=== PATIENT | female | born 1980 | race Caucasian/White ===

== ENCOUNTER 2019-11-05 02:37 | Emergency (ER) | payer BC ==
--- NOTE | 2019-11-05 03:21 | PDOC ---
Attending Attestation - Resident Resident Name: Shashank Iversonson - ED Attending Attestation I have performed the following: I have examined & evaluated the patient, The case was reviewed & discussed with the resident, I agree w/resident's findings & plan - HPI HPI: 11/05/19 06:27 Pt comes with left CP and left shoulder numbness that began as numbness in the left forearm, and spread to involve the entire arm Pt has no decreased range of motion or weakness. SHe has some Left neck and left anterior shoulder chest pain No other complaints. - Physicial Exam PE: 11/05/19 21:06 Agree with resident exam - Medical Decision Making 11/05/19 06:27 CBC is normal CHEM is pending 11/05/19 07:[address] cspine to r/o disc herniation 11/05/19 21:08 Sign out to day ER docs. Heart Score/ECG Review - ECG Intrepretation Rhythm: Regular Rhythm - P and OK Prominent R with upright T in V1 (true posterior MS): No - QRS Poor R Wave Progression: No Q Wave Present: No - ST and T Early Repolarization: No Non Specific ST-T Wave changes: Yes Flattened T Waves: No Prolonged Q-T Interval: No - ECG Impressions Normal ECG: Yes Non-specific ST Elevation: No Ischemic Changes: No Bradycardia: Yes Torsades sanjay Pointes: No Comment:: 11/05/19 03:21 RATE 59bpm
[2019-11-05 03:46] VITALS: BMI 27.4
--- NOTE | 2019-11-05 04:49 | PDOC ---
Attending Attestation - Resident Resident Name: Rodrigo Iverson - ED Attending Attestation I have performed the following: I have examined & evaluated the patient, The case was reviewed & discussed with the resident, I agree w/resident's findings & plan
[2019-11-05 05:07] LABS: BASO % 1.2 % (0-2.0); EOS % 2.3 % (0-4.5); HEMOGLOBIN 13.5 GM/dL (10.7-15.3); LYMPH % 42.5 % (8-40); MCH 32.6 pg (25.7-33.7); MCHC 34.5 g/dl (32.0-36.0); MEAN CELL VOLUME 94.5 fl (80-96); MEAN PLT VOLUME 7.4 fl (7.5-11.1); MONO % 5.8 % (3.8-10.2); NEUT % 48.2 % (42.8-82.8); PLATELET COUNT 360 K/MM3 (134-434); RBC 4.12 M/mm3 (3.60-5.2); RDW 12.1 % (11.6-15.6); WHITE BLOOD COUNT 10.5 K/mm3 (4.0-10.0)
--- NOTE | 2019-11-05 05:07 | PDOC ---
History of Present Illness - General Chief Complaint: Chest Pain Stated Complaint: CHEST PAIN, NUMBNESS/PAIN, LT ARM Time Seen by Provider: 11/05/19 03:55 - History of Present Illness Initial Comments: 11/05/19 05:01 39 yo F with h/o LARKIN disroder, who p/w left forearm numbness/tingling x 1 day. Patient noticed left forearm numbness/tingling. beginning 11-04-18, noticed while driving. Patient reports h/o similar symptoms, but never this long lasting. Sensation worse with arm movement in all directions. No other complaints. No identifiable alleviators. Denies h/o repititive movements or trauma to left arm. Patient concerned because father with h/o MS and similiar sx. Patient denies LARKIN, vision change, palpitations, cough, wheezing, orthopena, PND , leg swelling/pain, N/V, F,C, CP, SOB, urinary complaints, hematuria, BPR, abdominal pain, diarrhea, constipation, lightheadedness, weakness. PMHx: as noted above. Reports h/o CP and palpitations, with negative stress testing. ROS: as noted SHx: Denies Etoh, IVDA, tobacco use Allergies: NKDA Past History - Past Medical History Allergies/Adverse Reactions: Allergies Allergy/AdvReac Type Severity Reaction Status Date / Time No Known Allergies Allergy Verified 11/05/19 03:14 Home Medications: Ambulatory Orders l-Norgest/E.estradiol-E.estrad [Seasonique 0.15-0.03-0.01 Tab] 1 each PO DAILY 11/08/15 COPD: No - Immunization History Immunization Up to Date: Yes - Psycho Social/Smoking Cessation Hx Smoking History: Never smoked Have you smoked in the past 12 months: No Number of Cigarettes Smoked Daily: 0 Information on smoking cessation initiated: No Hx Alcohol Use: No Drug/Substance Use Hx: No Review of Systems - Review of Systems Comments:: 11/05/19 05:01 GENERAL/CONSTITUTIONAL: No fever or chills. No weakness. HEAD, EYES, EARS, NOSE AND THROAT: No change in vision. No ear pain or discharge. No sore throat. CARDIOVASCULAR: No chest pain or shortness of breath RESPIRATORY: No cough, wheezing, or hemoptysis. GASTROINTESTINAL: No nausea, vomiting, diarrhea or constipation. GENITOURINARY: No dysuria, frequency, or change in urination. MUSCULOSKELETAL: LUE arm/forearm burning tingling, or numbness. No joint or muscle swelling . No neck or back pain. SKIN: No rash NEUROLOGIC: No headache, vertigo, loss of consciousness, or change in strength/ sensation. ENDOCRINE: No increased thirst. No abnormal weight change HEMATOLOGIC/LYMPHATIC: No anemia, easy bleeding, or history of blood clots. ALLERGIC/IMMUNOLOGIC: No hives or skin allergy. *Physical Exam - Vital Signs Last Vital Signs Temp Pulse Resp BP Pulse Ox 98.0 F 60 17 146/88 100 11/05/19 03:40 11/05/19 03:40 11/05/19 03:40 11/05/19 03:40 11/05/19 03:40 - Physical Exam 11/05/19 05:02 GENERAL: Awake, alert, and fully oriented, in no acute distress HEAD: No signs of trauma, normocephalic, atraumatic EYES: PERRLA, EOMI, sclera anicteric, conjunctiva clear ENT: Hearing grossly normal, nares patent, oropharynx clear without exudates. Moist mucosa NECK: Normal ROM, supple, no lymphadenopathy, JVD, or masses LUNGS: No distress, speaks full sentences, clear to auscultation bilaterally HEART: Regular rate and rhythm, normal S1 and S2, no murmurs, rubs or gallops, peripheral pulses normal and equal bilaterally. ABDOMEN: Soft, nontender, normoactive bowel sounds. No guarding, no rebound. No masses EXTREMITIES : + Left arm/shoulder, and forearm pain with active/passive external rotation, abduction. 5/5 strength. Normal inspection, Normal range of motion, no edema. No clubbing or cyanosis. 2 + peripheral pulses throughout. NEUROLOGICAL: Cranial nerves II through XII grossly intact. Normal speech, normal gait, no focal sensorimotor deficits SKIN: Warm, Dry, normal turgor, no rashes or lesions noted ED Treatment Course - LABORATORY CBC & Chemistry Diagram: 11/05/19 04:20 11/05/19 04:16 Medical Decision Making - Medical Decision Making 11/05/19 05:10 39 yo F with h/o LARKIN disroder, who p/w left forearm numbness/tingling x 1 day. Vitals wnl, AF, A&OX3. Physical exam notable for + Left arm/shoulder, and forearm pain with active/passive external rotation, abduction. 5/5 strength. 2+ pulses BL UE. Neurovascularly intact. Absent neuro findings on exam, negative c- spine ttp or bony abnml. ACS/MS r/o. Will assess for electolyte abnml, metabolic and toxic derangements. Pain reproducible on exam, likely MSK etiology. Will provide anlagesic control and reassess. ED Course: Motrin 600 mg. 11/05/19 06:28 EKG: NSR with sinus arrythmia, absent TANO, STD. Nml interval duration and axis. Nml R wave progression. Absent Q waves. 11/05/19 07:03 Patient stable, and endorsed to dayteam resident. Pending CMP Discharge - Discharge Information Problems reviewed: Yes Clinical Impression/Diagnosis: Numbness and tingling in left arm Condition: Stable Disposition: HOME - Admission No - Follow up/Referral Referrals: Scooby Saavedra MD [Staff Physician] - - Patient Discharge Instructions Patient Printed Discharge Instructions: DI for Atypical Chest Pain Additional Instructions: Please return to the emergency department with any new or worsening symptoms or concerns. Please follow up with your cardiology and primary care physician within 72 hours. Please follow up with your primary care physician to schedule an MRI as an outpatient. - Post Discharge Activity
[2019-11-05] MEDS ORDERED: IBUPROFEN 600 MG TABLET (FP) PO ONE ×2 (05:10→05:16)
[2019-11-05 07:52] LABS: ALBUMIN 3.4 g/dl (3.4-5.0); BILIRUBIN,TOTAL 0.5 mg/dL (0.2-1); BLOOD UREA NITROGEN 19.2 mg/dL (7-18); CALCIUM 8.7 mg/dL (8.5-10.1); CREATININE 0.7 mg/dL (0.55-1.3); POTASSIUM 4.4 mmol/L (3.5-5.1); TOT PROT 6.9 g/dl (6.4-8.2)
--- NOTE | 2019-11-05 09:07 | PDOC ---
*Physical Exam - Vital Signs Last Vital Signs Temp Pulse Resp BP Pulse Ox 97.5 F L 65 18 152/85 100 11/05/19 07:19 11/05/19 07:21 11/05/19 07:19 11/05/19 07:19 11/05/19 07:21 ED Treatment Course - LABORATORY CBC & Chemistry Diagram: 11/05/19 04:20 11/05/19 04:16 - ADDITIONAL ORDERS Additional order review: Laboratory Results 11/05/19 11/05/19 11/05/19 04:20 04:16 04:16 Sodium 139 Potassium 4.4 Chloride 106 Carbon Dioxide 28 Anion Gap 4 L BUN 19.2 H Creatinine 0.7 Est GFR (CKD-EPI)AfAm 124.73 Est GFR (CKD-EPI)NonAf 107.62 Random Glucose 94 Calcium 8.7 Total Bilirubin 0.5 AST 29 ALT 17 Alkaline Phosphatase 59 Creatine Kinase 122 Troponin I < 0.02 Total Protein 6.9 Albumin 3.4 Serum , Qual Negative 11/05/19 04:20 RBC 4.12 MCV 94.5 MCHC 34.5 RDW 12.1 MPV 7.4 L Neutrophils % 48.2 Lymphocytes % 42.5 H Monocytes % 5.8 Eosinophils % 2.3 Basophils % 1.2 - Medications Given in the ED: ED Medications Discontinued Medications Generic Name Dose Route Start Last Admin Trade Name Alli PRN Reason Stop Dose Admin Ibuprofen 600 mg 11/05/19 05:10 11/05/19 05:18 Motrin - PO 11/05/19 05:11 600 mg ONCE ONE Administration Medical Decision Making - Medical Decision Making 11/05/19 09:[address] Iverson. Patient is 39F here today with atypical chest pain. EKG reassuring. Pending one trop. CT ordered due to neck pain. Pending CT. Likely discharge. CMP unremarkable Trop negative. 11/05/19 10:25 CT shows straightening of spine, recommends follow up MRI. Will discharge home. Discharge - Discharge Information Problems reviewed: Yes Clinical Impression/Diagnosis: Numbness and tingling in left arm Condition: Stable Disposition: HOME - Admission No - Follow up/Referral Referrals: Scooby Saavedra MD [Staff Physician] - - Patient Discharge Instructions Patient Printed Discharge Instructions: DI for Atypical Chest Pain Additional Instructions: Please return to the emergency department with any new or worsening symptoms or concerns. Please follow up with your cardiology and primary care physician within 72 hours. Please follow up with your primary care physician to schedule an MRI as an outpatient. - Post Discharge Activity
--- NOTE | 2019-11-05 10:20 | PDOC ---
*Physical Exam - Vital Signs Last Vital Signs Temp Pulse Resp BP Pulse Ox 97.5 F L 65 18 152/85 100 11/05/19 07:19 11/05/19 07:21 11/05/19 07:19 11/05/19 07:19 11/05/19 07:21 - Physical Exam 11/05/19 10:34 gen: aaox3, sleeping, easily arousable, moving all extremities heart: +s1s2 reg lungs: cta b/l abd: soft, nt/nd +bs ext: no c/c/e, FROM of the shoulders b/l, pulses intact, sensation intact ED Treatment Course - LABORATORY CBC & Chemistry Diagram: 11/05/19 04:20 11/05/19 04:16 - ADDITIONAL ORDERS Additional order review: Laboratory Results 11/05/19 11/05/19 11/05/19 04:20 04:16 04:16 Sodium 139 Potassium 4.4 Chloride 106 Carbon Dioxide 28 Anion Gap 4 L BUN 19.2 H Creatinine 0.7 Est GFR (CKD-EPI)AfAm 124.73 Est GFR (CKD-EPI)NonAf 107.62 Random Glucose 94 Calcium 8.7 Total Bilirubin 0.5 AST 29 ALT 17 Alkaline Phosphatase 59 Creatine Kinase 122 Troponin I < 0.02 Total Protein 6.9 Albumin 3.4 Serum , Qual Negative 11/05/19 04:20 RBC 4.12 MCV 94.5 MCHC 34.5 RDW 12.1 MPV 7.4 L Neutrophils % 48.2 Lymphocytes % 42.5 H Monocytes % 5.8 Eosinophils % 2.3 Basophils % 1.2 - Medications Given in the ED: ED Medications Discontinued Medications Generic Name Dose Route Start Last Admin Trade Name Freq PRN Reason Stop Dose Admin Ibuprofen 600 mg 11/05/19 05:10 11/05/19 05:18 Motrin - PO 11/05/19 05:11 600 mg ONCE ONE Administration Medical Decision Making - Medical Decision Making 11/05/19 10:34 39yo female with cp and shoulder pain -pt signed out from the prior attending pending labs and ct imaging -trop neg -pt states she has been stressed, lost a house she was trying to buy and recent in her family -pt states sleeping ok -had a brief episode of cp ealier last night - resolved -no pleuritic cp, no calf ttp -labs reviewed -ct c spine shows straightening of the c spine without disc disease -suspect muscle spasm -suspect radicular pain in arm -pt follows up with PMD at [facility]- discussed follow up thursday -pt agrees with the plan and pt states she feels better and wants to go home Discharge - Discharge Information Problems reviewed: Yes Clinical Impression/Diagnosis: Numbness and tingling in left arm Condition: Stable Disposition: HOME - Admission No - Follow up/Referral Referrals: Scooby Saavedra MD [Staff Physician] - - Patient Discharge Instructions Patient Printed Discharge Instructions: DI for Atypical Chest Pain Additional Instructions: Please return to the emergency department with any new or worsening symptoms or concerns. Please follow up with your cardiology and primary care physician within 72 hours. Please follow up with your primary care physician to schedule an MRI as an outpatient. - Post Discharge Activity
[2019-11-05 10:39] VITALS: BP 148/85; PULSE 64; TEMP 97.8
--- NOTE | 2019-11-05 10:44 | EKG ---
Test Reason : Blood Pressure : / mmHG Vent. Rate : 059 BPM Atrial Rate : 059 BPM P-R Int : 168 ms QRS Dur : 078 ms QT Int : 416 ms P-R-T Axes : 057 078 043 degrees QTc Int : 411 ms SINUS BRADYCARDIA WITH SINUS ARRHYTHMIA NONSPECIFIC T WAVE ABNORMALITY ABNORMAL ECG WHEN COMPARED WITH ECG OF 08-NOV-2015 00:45, CRITERIA FOR ANTEROSEPTAL INFARCT ARE NO LONGER PRESENT Confirmed by NIKKI MCADAMS MD ([id number]) on 11/05/2019 10:43:47 AM Referred By: Confirmed By:NIKKI MCADAMS MD
== END 2019-11-05 10:38 | disposition home or self-care (01) ==
LOC: JER 02:37
DX: R20.2 Paresthesia of skin (principal)
CPT/HCPCS: 36415; 72125-TC; 80053; 82550; 84484; 84703; 85025; 93005; 93010; 99284-25